=== PATIENT | male | born 1990 | race Two or more races ===

== ENCOUNTER 2017-03-20 17:31 | Emergency (ER) | payer SELFPAY ==
--- NOTE | 2017-03-20 17:50 | EDPHY ---
H & P Stated Complaint: 1 week increasing l cp Time Seen by Provider: 03/20/17 17:48 - Personal History Current Tetanus/Diphtheria Vaccine: Yes - Medical/Surgical History Hx Asthma: No Hx Chronic Respiratory Disease: No Hx Diabetes: No Hx Cardiac Disease: No Hx Renal Disease: No Hx Cirrhosis: No Hx Alcoholism: No Hx HIV/AIDS: No Hx Splenectomy or Spleen Trauma: No Other PMH: denies - Social History Smoking Status: Current every day smoker Constitutional: Initial Vital Signs Temperature (C) 36.9 C 03/20/17 17:34 Heart Rate 73 03/20/17 17:34 Respiratory Rate 18 03/20/17 17:34 Blood Pressure 119/81 H 03/20/17 17:34 O2 Sat (%) 96 03/20/17 17:34 O2 Delivery Mode Room Air Allergies/Adverse Reactions: No Known Allergies Allergy (Unverified 03/20/17 17:34) Home Medications: Medication Instructions Recorded Hydrocodone/APAP 5/325 [Hagan 1 - 2 each PO Q4-6PRN PRN #20 tab 03/20/17 5/325] Medical Decision Making - Diagnostics Imaging: I viewed and interpreted images myself ED Course/Re-evaluation: CHIEF COMPLAINT: Chest pain HISTORY OF PRESENT ILLNESS: Healthy 27-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 When he was cooking and lifting things over the last week his left upper chest started to bother him. The more he cooks and more thinks he lifts the more pain he has in his left upper chest. He denies any associated symptoms whatsoever. He has no shortness of breath, nausea, vomiting, dizziness, lightheadedness, radiation of pain, palpitations or anything else. He has not had this symptom before. This patient is a [place]-speaking 27 year old male. HPI primarily obtained through electrician front present at bedside. REVIEW OF SYSTEMS: A 10 point review of systems was performed and is negative with the exception of the elements mentioned in the history of present illness. PHYSICAL EXAM: HR, BP, O2 Sat, RR. Temp noted General Appearance: Alert, well hydrated, appropriate, and non-toxic appearing. Head: Atraumatic without scalp tenderness or obvious injury Eyes: Pupils equal, round, reactive to light and accommodation, EOMI, no trauma , no injection. Ears: Clear bilaterally, no perforation, normal landmarks Nose: Atraumatic, no rhinorrhea, clear. Throat: There is no erythema or exudates, no lesions, normal tonsils, mucus membranes moist. Neck: Supple, nontender, no lymphadenopathy. Respiratory: No retractions, no distress, no wheezes, and no accessory muscle use. Lungs are clear to auscultation bilaterally. Cardiovascular: Reproducible left chest wall pain with palpation. Regular rate and rhythm, no murmurs, rubs, or gallops. Bilateral carotid, radial, dorsalis pedis, and posterior tibial pulses intact. Good capillary refill all extremities. Gastrointestinal: Abdomen is soft, nontender, non-distended, no masses, no rebound, no guarding, no peritoneal signs. Musculoskeletal: Normal active ROM of all extremities, atraumatic. Neurological: Alert, appropriate, and interactive. The patient has normal DTRs and non-focal cranial nerves, motor, sensory, and cerebellar exam. Skin: No rashes, good turgor, no nodules on palpation. Past medical history: Denies Past surgical history: Noncontributory Family history: Noncontributory Social history: Welcome in [place]. DIAGNOSTICS/PROCEDURES/CRITICAL CARE TIME: The 12 lead EKG was interpreted by myself. See hard copy and/or "tracemaster" electronic copy for interpretation. Sinus mechanism, normal intervals, no ischemia, no evidence of pericarditis. Study: PA and Lateral Chest X-ray Indication: Chest pain Results: After viewing the images myself on the PACS system. My interpretation of the images is: no acute process. The radiologist interpretation is pending at the time of this dictation. DIFFERENTIAL DIAGNOSIS: The differential diagnosis for the patient's chest pain included but was not limited to myocardial ischemia, pulmonary embolus, chest wall pain, pleural inflammation, and pulmonary infectious causes. MEDICAL DECISION MAKING: This patient has a normal EKG, normal chest x-ray, reproducible chest pain with palpation. He has no associated symptoms he is young and healthy. He does not smoke and he does not have any family history that is worrisome for early cardiopulmonary disease. I believe he is musculoskeletal chest pain will start him on Motrin 800 mg 3 times a day I will give him a few Vicodin. He will follow up with his primary care doctor Departure - Departure Disposition: Home, Routine, Self-Care Clinical Impression: Chest pain Qualifiers: Chest pain type: other chest pain Qualified Code(s): R07.89 - Other chest pain Condition: Good Instructions: Chest Pain (ED) Additional Instructions: 1. You may take 600mg of ibuprofen every 6-8 hours as needed for pain. 2. Follow up with a primary care provider for symptoms unresolved in the next 2- 3 days. 3. Return to the emergency department if you develop worsening chest pain, difficulty breathing, shortness of breath, vomiting, or other worsening of condition. Referrals: Anthony Heck MD [Medical Doctor] - As per Instructions [facility],. [Clinic] - As per Instructions Prescriptions: Hydrocodone/APAP 5/325 [Hagan 5/325] 1 - 2 each PO Q4-6PRN PRN #20 tab PRN Reason: Pain, Moderate Print Language: [place] Report Scribed for: Ji Palencia Report Scribed by: Sienna Crandall Date of Report: 03/20/17 Time of Report: 18:09
--- NOTE | 2017-03-20 18:17 | CPEKG ---
Heart Rate: 69 RR Interval: 870 P-R Interval: 132 QRSD Interval: 70 QT Interval: 376 QTC Interval: 403 P Stanberry: 46 QRS Stanberry: 52 T Wave Stanberry: 34 EKG Severity - NORMAL ECG - EKG Impression: SINUS RHYTHM Electronically Signed By: Ji Palencia 20-Mar-2017 22:00:10
[2017-03-20 18:49] VITALS: BP 121/77; PULSE 71; RESP 15; TEMP 98.8; O2SAT 95
== END 2017-03-20 18:50 | disposition home or self-care (01) ==
DX: R07.89 Other chest pain (principal); F17.200 Nicotine dependence, unspecified, uncomplicated